=== PATIENT | male | born 1960 | race Caucasian/White ===

== ENCOUNTER → 2016-08-08 | Outpatient (CLI) | payer OTHER | END | disposition disaster alternative care site (69) | LOC: GRAD 09:00 | DX: Z53.8 Procedure and treatment not carried out for other reasons (principal) ==

== ENCOUNTER → 2016-08-17 | Outpatient (CLI) | payer OTHER | END | disposition disaster alternative care site (69) | LOC: GRAD 08-10 13:30 | DX: G57.51 Tarsal tunnel syndrome, right lower limb (principal); M77.50 Other enthesopathy of unspecified foot and ankle; M25.571 Pain in right ankle and joints of right foot; Z98.890 Other specified postprocedural states ==

== ENCOUNTER 2016-10-30 20:13 | Emergency (ER) | payer OTHER ==
--- NOTE | ~2016-10-30 | ENPV ---
Vascular Lower Extremities DVT Study Procedure Demographics Patient Name AGUILA KENNEDY Date of Study 10/30/2016 Patient Number [id number] Gender Male Date of 1960 Age 56 Visit Number [id number] Height Accession Number [id number] Weight Room Number BSA BMI Referring Madi Ochoa MD Physician Physician Physician Esme Nelson General Purchasing Agent Physician Baggage Handler Ben [facility], [facility] Conclusions Summary No evidence of deep vein thrombosis or superficial thrombophlebitis in the right lower extremity. Procedure Type of Study: Veins:Lower Extremities DVT Study, Lower Extremity Right. Indications for Study:Pain in Limb and Swelling of Limb. Appropriate Use Criteria:9 Patient Status:STAT. Study Location:ER. Technical Quality:Adequate visualization. Velocities are measured in cm/s ; Diameters are measured in cm Right Lower Extremities DVT Study Measurements Right 2D and Doppler Measurements + + + + +------+------+ + !Location !Visualized!Compressibility!Thrombosis!Signal!Reflux!Reflux ! ! ! ! ! ! ! !(sec) ! + + + + +------+------+ + !GSV Thigh !Yes !Yes !None !Phasic! ! ! + + + + +------+------+ + !Common !Yes !Yes !None !Phasic! ! ! !Femoral ! ! ! ! ! ! ! + + + + +------+------+ + !Prox !Yes !Yes !None !Phasic! ! ! !Femoral ! ! ! ! ! ! ! + + + + +------+------+ + !Mid Femoral!Yes !Yes !None ! ! ! ! + + + + +------+------+ + !Dist !Yes !Yes !None !Phasic! ! ! !Femoral ! ! ! ! ! ! ! + + + + +------+------+ + !Popliteal !Yes !Yes !None !Phasic! ! ! + + + + +------+------+ + !Gastroc !Yes !Yes !None !Phasic! ! ! + + + + +------+------+ + !PTV !Yes !Yes !None ! ! ! ! + + + + +------+------+ + !Peroneal !Yes !Yes !None ! ! ! ! + + + + +------+------+ + Signature dtt: WILL FREEMAN dtd: 10/30/16 2107 Physician Self Edit
--- NOTE | ~2016-10-30 | ER ---
PATIENT'S NAME: AGUILA KENNEDY [facility] AGE: 56 Y [address] ROOM: [place] [address] LOCATION: [facility] ADMIT DATE: 10/30/2016 ER/Outpatient Report DISCHARGE DATE: 10/30/2016 FAMILY PHYSICIAN: Orion Barraza MD ATTENDING PHYSICIAN: Brian Mehta Time of Arrival: 2015 hours. Time of Evaluation: 2015 hours. CHIEF COMPLAINT: Right knee and ankle pain. HISTORY OF PRESENT ILLNESS: The patient states about 3 o'clock today, he began having increased swelling and pain primarily of the right knee, but it goes down into the right ankle area also. He said he did take his Nucynta that he has at home for pain. He has tried Tylenol x2 tablets, ibuprofen x4 tablets, and tizanidine x3 tablets without any relief. He does feel it is a little bit warmer to touch than normal. He has had multiple surgeries to this knee; it has been totally replaced 4 times. Denies any new injuries to knee or leg. Denies feeling shor of breath. ALLERGIES: MORPHINE CAUSED ANAPHYLAXIS. CURRENT MEDICATIONS: On his chart and reviewed by me. PAST MEDICAL HISTORY: Depression, hypertension. PAST SURGICAL HISTORY: Right tarsal tunnel repair, right total knee x4, bilateral shoulders x2, lumbar spine surgery, hernia repair x3. SOCIAL HISTORY: He presents to the ER tonight accompanied by his . He does smoke at least half pack a day and chews tobacco on a daily basis. Denies use of drugs or alcohol. REVIEW OF SYSTEMS: All negative other than those mentioned in the HPI. PHYSICAL EXAMINATION: VITAL SIGNS: He weighs 81.7 kg, blood pressure is 148/73, pulse of 86, respirations 16, temperature of 98.3 tympanic, O2 saturation is 96% on room PATIENT'S NAME: AGUILA KENNEDY [facility] AGE: 56 Y [address] ROOM: [place] [address] LOCATION: [facility] ADMIT DATE: 10/30/2016 ER/Outpatient Report DISCHARGE DATE: 10/30/2016 FAMILY PHYSICIAN: Orion Barraza MD ATTENDING PHYSICIAN: Brian Mehta air. GENERAL: He is awake, alert, and oriented x4. SKIN: [place], warm, and dry. RESPIRATIONS: Even and nonlabored. Lung sounds are clear throughout. HEART: Regular rate and rhythm. EXTREMITIES: He has strong pedal pulses on the right. No pedal edema noted. He does have swelling of the right knee. It does feel warm to touch. It is tender in the posterior aspect of the knee, and the calf area is tender to touch. LABORATORY DATA AND X-RAYS: Lab work was drawn. CBC is within normal limits. Chem panel is within normal limits. Sedimentation rate was 4 and CRP was less than 0.29. Lactate was 1.3. Procalcitonin was normal. EMERGENCY DEPARTMENT COURSE: Saline lock was initiated. The patient was given fentanyl 50 mcg IV. Doppler ultrasound of the right leg was completed. Tech reports it is negative for any clots. The patient's pain continued. We did give him Valium 2 mg IV x1 dose. Monitored him. He felt that had helped the most of his discomfort, and he was feeling better, but the pain was not totally gone. We did repeat the fentanyl 50 mcg x1. IMPRESSION: Right knee pain. PLAN: The patient will be discharged home. He is to rest. Elevate. Ice. Take his medications as prescribed and follow up with his primary provider in the next 1 to 2 days. I did give him a prescription for 10 of [place] to use for breakthrough pain before he can get in to see his primary provider. He verbalized understanding plan of care. DEBI ESCOBAR APRN FOR DO LAMBERTO MCGUIRE/saritha /[id number] d: 10/31/16 0103 t: 11/02/16 0633, OUTPATIENT REPORT
[2016-10-30 20:40] LABS: BASOPHIL % 0.4 %; EOSINOPHIL # 0.1 K/uL (0.0-0.5); EOSINOPHIL % 1.5 %; HEMATOCRIT 38.5 % (37.0-53.0); HEMOGLOBIN 13.8 g/dL (12.0-17.0); IMMATURE GRANULOCYTE % 0.4 %; LYMPHOCYTE # 0.5 K/uL (0.8-4.0); LYMPHOCYTE % 10.2 %; MCH 32.5 pg (27.0-34.0); MCHC 35.8 gm/dL (32.0-36.5); MCV 90.8 fl (83.0-98.0); MONOCYTE # 0.6 K/uL (0.0-1.0); MONOCYTE % 12.1 %; MPV 8.5 fl (9.4-12.4); NEUTROPHIL # (ANC) 3.9 K/uL (1.4-9.0); NEUTROPHIL % 75.4 %; NRBC % 0 /100WBC (0-0.00); PLATELET COUNT 173 K/uL (150-450); RBC 4.24 M/uL (4.00-6.00); RDW-CV 11.9 % (11.9-14.6); WBC 5.2 K/uL (4.0-11.0)
[2016-10-30 21:00] LABS: ALBUMIN 4.1 gm/dL (3.5-5.0); ALK PHOS 79 IU/L (33-138); ALT 26 IU/L (12-78); AST 25 IU/L (10-40); BLOOD UREA NITROGEN 11 mg/dL (6-24); CALCIUM 8.6 mg/dL (8.5-10.5); CHLORIDE 101 mMol/L (96-110); CO2 26 mMol/L (22-32); CREATININE 1.1 mg/dL (0.6-1.3); SODIUM 134 mMol/L (135-145); TOTAL BILIRUBIN 0.3 mg/dL (0.0-1.5); TOTAL PROTEIN 6.3 g/dL (6.0-8.4)
== END 2016-10-30 21:59 | disposition disaster alternative care site (69) ==
LOC: GMED 20:13
PROVIDERS: Nurse Practitioner Family
DX: M25.561 Pain in right knee (principal); I10 Essential (primary) hypertension; F17.210 Nicotine dependence, cigarettes, uncomplicated; F32.9 Major depressive disorder, single episode, unspecified; Z88.5 Allergy status to narcotic agent; Z96.651 Presence of right artificial knee joint; Z98.890 Other specified postprocedural states
CPT/HCPCS: J3010; J3360